=== PATIENT | female | born 1975 | race Caucasian/White ===

== ENCOUNTER 2017-06-09 17:17 | Emergency (ER) | payer OTHER ==
[2017-06-09 17:23] VITALS: BP 174/98; BMI 22.1
--- NOTE | 2017-06-09 19:01 | DR.GENAD ---
HPI - PCP Primary Care Physician: YOANNA - HPI Comment HPI Comment: PATIENT HAVE ABSCESS RT AXILLA AND IS ON MEDICATION CURRENTLY. MUSCLES AROUND ANSCESS HURTS. SHE ALSO FELL ON HER RIGHT SIDE FEW DAYS AFO. NO IMMEDIATE PAIN. RUQ PAIN STARTED AND PROGRESSIVELY GOTTEN WORSE. SOME NAUSEA PRESENT BUT NO VOMITING. - Complaint/Symptoms Chief Complaint Doctors Comments: RUQ ABDOMINAL PAIN, RT AXILLAR ABSCESS, TRAUMA RT SIDE FEW DAYS, WORSE TODAY. Chief Complaint:: RIGHT UPPER QUADRANT PAIN - Nurses notes reviewed Nurses Notes Review: Yes - Source History Provided: Patient - Mode of Arrival Mode of Arrival: Ambulatory - Timing Onset of Chief Complaint: 06/09/17 Came on: Gradually - Duration Duration: Constant Duration: Days - Severity Severity: Moderate PMH - PMH Past Medical History: Yes Past Medical History: Hypertension Past Surgical History: Yes Surgical History: - Family History History of Family Medical Conditions: No Family Medical History: Hypertension - Social History Does patient currently use any type of tobacco product: Yes Have you used tobacco products in the last 12 months: Yes Type of Tobacco Use: Cigarettes Does any household member use tobacco: Yes Alcohol Use: None Do you use any recreational Drugs:: No Lives With: Family Lives Where: Home - infectious screening In the last 2 months have you had wt loss of >10#?: NO Have you had fever, night sweats or hemotysis?: No Have you traveled outside the country in the last 6 months?: No Isolation: Standard ROS - Review of Systems Constitutional: No Symptoms Reported. negative: Chills, Fever, Weakness, Fatigue Eyes: No Symptoms Reported. negative: Eye Pain, Discharge ENTM: No Symptoms Reported. negative: Ear Pain, Nose Discharge, Nose Congestion , Throat Pain Respiratoy: No Symptoms Reported. negative: Productive Cough, Non-Productive Cough, Short of Breath, Wheezing, Hemoptysis Cardiovascular: Chest Pain (RT LOWER CHEST.) Gastrointestinal/Abdominal: Abdominal Pain, Nausea Genitourinary: No Symptoms Reported. negative: Dysuria, Frequency, Hematuria Neurological: Headache Musculoskeletal: Chest wall (RT LOWER CHEST.) Integumentary: No Symptoms Reported Hematologic/Lymphatic: No Symptoms Reported Endocrine: No Symptoms Reported All Other Systems: Reviewed and Negative PE - Vital Signs Vitals: Temperature 98.5 F Pulse Rate 68 Respiratory Rate 20 Blood Pressure 174/98 O2 Sat by Pulse Oximetry 98 - General Limitations: No Limitations General Appearance: Alert - Head Head Exam: Normal Inspection - Eyes Eye exam: Normal Appearance - ENT ENT Exam: Normal External Ear Exam External Ear Exam: Normal External Inspection TM/Canal Exam: Bilateral Normal Nose Exam: Normal Nose Exam Mouth Exam: Normal Inspection Throat Exam: Normal Inspection - Neck Neck Exam: Normal Inspection, Trachea Midline - Chest Chest Inspection: Symmetric Chest Wall Rise - Respiratory Respiratory Exam: Normal Lung Sounds Bilat Respiratory Exam: Bilateral Clear to Auscultation - Cardiovascular Cardiovascular Exam: Regular Rate, Normal Rhythm, Normal Heart Sounds - Abdominal Exam Abdominal Exam: Normal Bowel Sounds, Soft, Tenderness, Other (ABSCEE, RT AXILLA. ) Abdominal Tenderness: RUQ, Epigastrium, Moderate - Extremities Extremities Exam: Normal Inspection - Back Back Exam: Normal Inspection - Neurologic Neurological Exam: Alert, Oriented X3 - Psychiatric Psychiatric Exam: Normal Affect, Normal Mood - Skin Skin Exam: Normal Color MDM - Differential Diagnosis Differential Diagnosis: ABDOMINAL PAIN, RT AXILLA ABSCESS Course - Treatment Treatment: SEE ORDERS. - Education/Counseling Education/Counseling: Patient, Education Educated On: Diagnosis, Needs for Follow Up ROR - Labs Reviewed Laboratory Results Reviewed?: Yes Result Diagrams: 06/09/17 19:34 06/09/17 19:34 Laboratory: WBC 9.8 X10^3/uL (3.6-10.0) 06/09/17 19:34 RBC 4.26 X10^6/uL (3.5-5.4) 06/09/17 19:34 Hgb 11.5 g/dL (12.0-16.0) L 06/09/17 19:34 Hct 35.1 % (36.0-47.0) L 06/09/17 19:34 MCV 82.5 fL (80.0-100.0) 06/09/17 19:34 MCH 27.0 pg (27.0-34.0) 06/09/17 19:34 MCHC 32.8 g/dL (33.0-35.0) L 06/09/17 19:34 RDW 16.4 % (11.6-16.5) 06/09/17 19:34 Plt Count 316 X10^3/uL (150.0-450.0) 06/09/17 19:34 MPV 8.6 fL (7.4-11.0) 06/09/17 19:34 Neut % 59.6 % (42.0-75.0) 06/09/17 19:34 Lymph % 25.7 % (21.0-51.0) 06/09/17 19:34 Cass % 8.2 % (0.0-13.0) 06/09/17 19:34 Eos % 5.6 % (0.9-2.9) H 06/09/17 19:34 Baso % 0.9 % (0.2-1.0) 06/09/17 19:34 Neut # 5.8 x10^3/uL (2.2-4.8) H 06/09/17 19:34 Lymph # 2.5 X10^3/uL (1.3-2.9) 06/09/17 19:34 Cass # 0.8 x10^3/uL (0.3-0.8) 06/09/17 19:34 Eos # 0.6 x10^3/uL (0.0-0.2) H 06/09/17 19:34 Baso # 0.1 X10^3/uL (0.0-0.1) 06/09/17 19:34 Absolute Nucleated RBC 0.0 /100WBC 06/09/17 19:34 Sodium 138 mmol/L (136-145) 06/09/17 19:34 Corrected Sodium TNP 06/09/17 19:34 Potassium 4.0 mmol/L (3.5-5.1) 06/09/17 19:34 Chloride 103 mmol/L (98-107) 06/09/17 19:34 Carbon Dioxide 28.5 mmol/L (21-32) 06/09/17 19:34 BUN 16 mg/dL (7-18) 06/09/17 19:34 Creatinine 0.64 mg/dL (0.55-1.02) 06/09/17 19:34 Est GFR (MDRD) Af Amer > 60 (>60) 06/09/17 19:34 Est GFR (MDRD) Non-Af > 60 (>60) 06/09/17 19:34 Glucose 74 mg/dL (65-99) 06/09/17 19:34 Calcium 9.5 mg/dL (8.5-10.1) 06/09/17 19:34 Corrected Calcium TNP 06/09/17 19:34 Total Bilirubin 0.20 mg/dL (0.2-1.0) 06/09/17 19:34 AST 18 Units/L (15-37) 06/09/17 19:34 ALT 21 Units/L (12-78) 06/09/17 19:34 Alkaline Phosphatase 72 Units/L (46-116) 06/09/17 19:34 Total Protein 7.8 g/dL (6.4-8.2) 06/09/17 19:34 Albumin 3.6 g/dL (3.4-5.0) 06/09/17 19:34 Globulin 4.2 g/dL (2.5-4.5) 06/09/17 19:34 Albumin/Globulin Ratio 0.9 Ratio (1.1-2.1) L 06/09/17 19:34 Amylase 60 Units/L (25-115) 06/09/17 19:34 Lipase 157 Units/L (73-393) 06/09/17 19:34 Specimen Type Clean catch urine 06/09/17 19:29 Urine Color Yellow (YELLOW) 06/09/17 19:29 Urine Appearance Hazy (CLEAR) 06/09/17 19:29 Urine pH 6.0 (5.0 - 8.0) 06/09/17 19:29 Ur Specific [place] 1.020 (1.000-1.030) 06/09/17 19:29 Urine Protein Negative (NEGATIVE) 06/09/17 19:29 Urine Glucose (UA) Negative (NEGATIVE) 06/09/17 19:29 Urine Ketones Negative (NEGATIVE) 06/09/17 19:29 Urine Occult Blood 1+ (NEGATIVE) 06/09/17 19:29 Urine Nitrite Negative (NEGATIVE) 06/09/17 19:29 Urine Bilirubin Negative (NEGATIVE) 06/09/17 19:29 Urine Urobilinogen Normal (NORMAL) 06/09/17 19:29 Ur Leukocyte Esterase Negative (NEGATIVE) 06/09/17 19:29 Urine RBC 0-2 /HPF (NEGATIVE) 06/09/17 19:29 Urine WBC 0-2 /HPF (NEGATIVE) 06/09/17 19:29 Ur Squamous Epith Cells Few /HPF (NEGATIVE) 06/09/17 19:29 Urine Bacteria Trace /HPF (NEGATIVE) 06/09/17 19:29 Ur Culture Indicated? No/not indicated 06/09/17 19:29 - Other Results Comments: REPORT DISCUSS WITH PATIENT. - Diagnosis Discharge Problem: Abscess of right axilla Abdominal pain Qualifiers: Abdominal location: right upper quadrant Qualified Code(s): R10.11 - Right upper quadrant pain Cellulitis Qualifiers: Site of cellulitis: extremity Site of cellulitis of extremity: axilla Laterality: right Qualified Code(s): L03.111 - Cellulitis of right axilla - Discharge Plan Disposition: 01 HOME, SELF-CARE Condition: Stable - Follow ups/Referrals Follow ups/Referrals: LÁZARO LENZ [Primary Care Provider] - 1 day - Instructions Instructions: Abdominal Pain, Adult, [id number] Additional Instructions: RETURN TO ED IF WORSE.
[2017-06-09 19:42] LABS: BILIRUBIN,URINE NEGATIVE (NEGATIVE); BLOOD/HEMOGLOBIN,URINE 1+ (NEGATIVE); GLUCOSE, URINE NEGATIVE (NEGATIVE); KETONES,URINE NEGATIVE (NEGATIVE); LEUKOCYTE ESTERASE ,URINE NEGATIVE (NEGATIVE); NITRITES,URINE NEGATIVE (NEGATIVE); PROTEIN,URINE NEGATIVE (NEGATIVE); UROBILINOGEN,URINE NORMAL (NORMAL)
[2017-06-09 19:43] LABS: BASOPHILS # (AUTO) 0.1 X10^3/uL (0.0-0.1); BASOPHILS % (AUTO) 0.9 % (0.2-1.0); EOSINOPHILS # (AUTO) 0.6 x10^3/uL (0.0-0.2); EOSINOPHILS % (AUTO) 5.6 % (0.9-2.9); HEMATOCRIT 35.1 % (36.0-47.0); HEMOGLOBIN 11.5 g/dL (12.0-16.0); LYMPHOCYTES # (AUTO) 2.5 X10^3/uL (1.3-2.9); LYMPHOCYTES % (AUTO) 25.7 % (21.0-51.0); MEAN CORPUSCULAR HGB CONC 32.8 g/dL (33.0-35.0); MEAN CORPUSCULAR VOLUME 82.5 fL (80.0-100.0); MEAN PLATELET VOLUME 8.6 fL (7.4-11.0); MONOCYTES # (AUTO) 0.8 x10^3/uL (0.3-0.8); MONOCYTES % (AUTO) 8.2 % (0.0-13.0); NEUTROPHILS # (AUTO) 5.8 x10^3/uL (2.2-4.8); NEUTROPHILS % (AUTO) 59.6 % (42.0-75.0); PLATELET COUNT 316 X10^3/uL (150.0-450.0); RED BLOOD COUNT 4.26 X10^6/uL (3.5-5.4); RED CELL DISTRIBUTION WIDTH 16.4 % (11.6-16.5); WHITE BLOOD COUNT 9.8 X10^3/uL (3.6-10.0)
[2017-06-09 19:49] LABS: APPEARANCE,URINE HAZY (CLEAR); BACTERIA,URINE TRACE /HPF (NEGATIVE); COLOR,URINE YELLOW (YELLOW); RBC,URINE 0-2 /HPF (NEGATIVE); SQUAMOUS EPITHELIAL CELL,UR FEW /HPF (NEGATIVE)
[2017-06-09 19:55] LABS: ALANINE AMINOTRANSFERASE 21 Units/L (12-78); ALBUMIN 3.6 g/dL (3.4-5.0); ALKALINE PHOSPHATASE 72 Units/L (46-116); AMYLASE 60 Units/L (25-115); ASPARTATE AMINO TRANSFERASE 18 Units/L (15-37); BLOOD UREA NITROGEN 16 mg/dL (7-18); CALCIUM 9.5 mg/dL (8.5-10.1); CARBON DIOXIDE 28.5 mmol/L (21-32); CHLORIDE 103 mmol/L (98-107); CREATININE 0.64 mg/dL (0.55-1.02); LIPASE 157 Units/L (73-393); SODIUM 138 mmol/L (136-145); TOTAL PROTEIN 7.8 g/dL (6.4-8.2); eGFR BLACK RACES > 60 (>60); eGFR NON BLACK RACES > 60 (>60)
--- NOTE | 2017-06-09 21:41 | CT ---
CT ABDOMEN AND PELVIS WITHOUT CONTRAST CLINICAL HISTORY: 41-year-old female with pelvic pain. COMPARISON: None. TECHNIQUE: Multiple contiguous computed tomographic axial images of the abdomen and pelvis were obtai sheri without the use of oral or intravenous contrast. Images were reformatted in the coronal and sagit ursula planes. FINDINGS: The lung bases demonstrate no evidence of focal air-space opacification, pleural effusion, pneumothor ax, or suspicious pulmonary nodules. The imaged inferior mediastinum and heart are normal in appeara nce without evidence of pericardial effusion. The liver, gallbladder, pancreas, and spleen are within normal limits for noncontrast imaging. The adrenal glands are unremarkable for study without contrast. Bilateral punctate nonobstructing sarah al stones. No perinephric fluid collection. There is no evidence of hydroureteronephrosis and the ure ters run in an unobstructed course to a well distended urinary bladder. Uterus is mildly prominent, chronic and stable. The ovaries, vagina and perineum are within normal l imits. Multiple pelvic phleboliths. The appendix is not definitively visualized, however, there are no inflammatory changes in the right lower quadrant to suggest appendicitis. The bowel is without obstruction or inflammation and there i s no free fluid or free air within the peritoneal cavity. There are no pathologically enlarged lymph nodes in the abdomen or pelvis. The arteriovascular structures are within normal limits for a study without contrast. Soft tissues are normal. The osseous structures are intact without fracture or malalignment. IMPRESSION: One. No acute intra-abdominal or intrapelvic process. 2. Chronic prominence of the uterus, recommend evaluation by [facility] on a nonemergent outpatient basis. Reported By:
== END 2017-06-09 20:50 | disposition home or self-care (01) ==
LOC: ER 17:31
DX: L02.411 Cutaneous abscess of right axilla (principal); R10.11 Right upper quadrant pain; L03.111 Cellulitis of right axilla
CPT/HCPCS: 36415; 74176; 80053; 81001; 82150; 83690; 85025; 99282; 99283

== ENCOUNTER 2023-05-02 13:17 | Inpatient (IN) ==
--- NOTE | 2023-05-02 15:16 | DR.GENAD ---
HPI Time Seen Time Seen by Provider: 05/02/23 15:14 PCP Primary Care Physician: JUNAID Gordon Complaint/Symptoms Chief Complaint:: Pt states that she had outpatient bloodwork done on 04/30/23 that showed a hgb 5.3 hct 21.5. Pt does state taht she has very heavy menstrual bleeding and last month she bled for the entire month. Her period has started back yesterday and she has been passing large clots. Pt has c/o exertional shortness of breath and generalized fatigue. COVID-19 Coronavirus risk:travel/contact w/high risk person: No Has patient experienced Coronavirus symptoms: No Source History Provided: Patient Mode of Arrival Mode of Arrival: Ambulatory Timing Onset of Chief Complaint: 05/02/23 PMH PMH Past Medical History: Yes Past Medical History: GERD Past Medical History Comment: heart murmur Past Surgical History: Yes Surgical History: Past Surgical History Comment: sinus surgery Family History History of Family Medical Conditions: Yes Family Medical History: Diabetes Mellitus, Cancer, [place], Coronary Artery Disease and Hypertension Family Medical History Comment: AAA, Anemia Social History Does patient currently use any type of tobacco product: Yes Have you used tobacco products in the last 12 months: Yes Type of Tobacco Use: Cigarettes Does any household member use tobacco: No Alcohol Use: None Do you use any recreational Drugs:: No Lives With: Family Lives Where: Home Travel Risk Coronavirus risk:travel/contact w/high risk person: No Has patient experienced Coronavirus symptoms: No Infectious screening In the last 2 months have you had wt loss of >10#?: NO Have you had fever, night sweats or hemotysis?: No Have you traveled outside the country in the last 6 months?: No Isolation: Standard PE Vital Signs Vitals: Vital Signs Temperature 97.8 F Pulse Rate 86 Respiratory Rate 20 Blood Pressure 115/58 O2 Sat by Pulse Oximetry 100 ROR Labs Reviewed 05/02/23 15:10 05/02/23 15:15 Laboratory: WBC 5.7 X10^3/uL (3.6-10.0) 05/02/23 15:10 RBC 2.80 X10^6/uL (3.5-5.4) L 05/02/23 15:10 Hgb 4.8 g/dL (12.0-16.0) L* 05/02/23 15:10 Hct 17.0 % (36.0-47.0) L* 05/02/23 15:10 MCV 60.7 fL (80.0-100.0) L 05/02/23 15:10 MCH 17.2 pg (27.0-34.0) L 05/02/23 15:10 MCHC 28.3 g/dL (33.0-35.0) L 05/02/23 15:10 RDW 20.9 % (11.6-16.5) H 05/02/23 15:10 Plt Count 256 X10^3/uL (150.0-450.0) 05/02/23 15:10 Plt Count Comment Adequate (ADEQUATE) 05/02/23 15:10 MPV 8.9 fL (7.4-11.0) 05/02/23 15:10 Neut % (Auto) 59.0 % (42.0-75.0) 05/02/23 15:10 Lymph % (Auto) 28.2 % (21.0-51.0) 05/02/23 15:10 [place] % (Auto) 7.0 % (0.0-13.0) 05/02/23 15:10 Eos % (Auto) 3.9 % (0.9-2.9) H 05/02/23 15:10 Baso % (Auto) 1.9 % (0.2-1.0) H 05/02/23 15:10 Neut # (Auto) 3.3 x10^3/uL (2.2-4.8) 05/02/23 15:10 Lymph # (Auto) 1.6 X10^3/uL (1.3-2.9) 05/02/23 15:10 [place] # (Auto) 0.4 x10^3/uL (0.3-0.8) 05/02/23 15:10 Eos # (Auto) 0.2 x10^3/uL (0.0-0.2) 05/02/23 15:10 Baso # (Auto) 0.1 X10^3/uL (0.0-0.1) 05/02/23 15:10 Absolute Nucleated RBC 0.1 /100WBC 05/02/23 15:10 Plt Morphology Comment Normal (NORMAL) 05/02/23 15:10 RBC Morphology Abnormal (NORMAL) A 05/02/23 15:10 Dimorphic RBCs Present 05/02/23 15:10 Hypochromasia 3+ A 05/02/23 15:10 Anisocytosis 1+ A 05/02/23 15:10 Microcytosis 2+ A 05/02/23 15:10 Stomatocytes Present 05/02/23 15:10 Sodium 134 mmol/L (136-145) L 05/02/23 15:15 Corrected Sodium TNP 05/02/23 15:15 Potassium 4.0 mmol/L (3.5-5.1) 05/02/23 15:15 Chloride 100 mmol/L (98-107) 05/02/23 15:15 Carbon Dioxide 25.6 mmol/L (21-32) 05/02/23 15:15 BUN 14 mg/dL (7-18) 05/02/23 15:15 Creatinine 0.67 mg/dL (0.55-1.02) 05/02/23 15:15 Est GFR (MDRD) Af Amer > 60 (>60) 05/02/23 15:15 Est GFR (MDRD) Non-Af > 60 (>60) 05/02/23 15:15 Glucose 88 mg/dL (65-99) 05/02/23 15:15 Calcium 8.8 mg/dL (8.5-10.1) 05/02/23 15:15 Corrected Calcium TNP 05/02/23 15:15 Iron 11 ug/dL (50-175) L 05/02/23 15:15 TIBC 601 ug/dL (250-450) H 05/02/23 15:15 Ferritin 4 ng/mL (8-252) L 05/02/23 15:15 Total Bilirubin 0.40 mg/dL (0.2-1.0) 05/02/23 15:15 AST 24 Units/L (15-37) 05/02/23 15:15 ALT 12 Units/L (12-78) 05/02/23 15:15 Alkaline Phosphatase 59 Units/L (46-116) 05/02/23 15:15 Total Protein 7.4 g/dL (6.4-8.2) 05/02/23 15:15 Albumin 3.9 g/dL (3.4-5.0) 05/02/23 15:15 Globulin 3.5 g/dL (2.5-4.5) 05/02/23 15:15 Albumin/Globulin Ratio 1.1 Ratio (1.1-2.1) 05/02/23 15:15 Vitamin B12 379 pg/mL (193-986) 05/02/23 15:15 Folate > 20.0 ng/mL (>8.6) 05/02/23 15:15 Blood Type O POSITIVE 05/02/23 15:15 Antibody Screen Negative 05/02/23 15:15 Opioid Opioid Risk Tool Age (Eduardo box if 16-45): No History of Preadolescent Sexual Abuse: No Total: 0 Total Score Risk Category: Low Risk Copyright: José Miguel PINEDO predicting aberrant behaviors Discharge Plan Discharge Plan Patient Disposition: 01 HOME, SELF-CARE Condition: Stable Prescriptions: No Action No Known Home Medications cephalexin 500 MG capsule 500 mg PO TID Qty: 30 0RF indomethacin 25 MG capsule 25 mg PO TID Qty: 21 0RF Health Concerns: Post Hospitalization: new medications and changes needed to prevent readmission or further decline. Pt educated and given instructions on all concerns. Plan of Treatment: Continue with present treatment and follow up plan. Pt is to keep follow up appointment as instructed and take medications as ordered. Orders to Discharge Patient Discharge Orders: Transfer (Routine); Ordered 05/02/23 Ordered By: HIGINIO MARADIAGA Follow ups/Referrals Follow ups/Referrals: JESSEE LARKIN [Primary Care Provider] - 3 days Instructions Stand Alone Forms: Post Hospital Follow Up Care
[2023-05-02 15:38] LABS: BASOPHILS # (AUTO) 0.1 X10^3/uL (0.0-0.1); EOSINOPHILS # (AUTO) 0.2 x10^3/uL (0.0-0.2); MEAN PLATELET VOLUME 8.9 fL (7.4-11.0); MONOCYTES # (AUTO) 0.4 x10^3/uL (0.3-0.8); RED CELL DISTRIBUTION WIDTH 20.9 % (11.6-16.5)
[2023-05-02 15:42] LABS: BASOPHILS % (AUTO) 1.9 % (0.2-1.0); EOSINOPHILS % (AUTO) 3.9 % (0.9-2.9); LYMPHOCYTES # (AUTO) 1.6 X10^3/uL (1.3-2.9); LYMPHOCYTES % (AUTO) 28.2 % (21.0-51.0); MEAN CORPUSCULAR HEMOGLOBIN 17.2 pg (27.0-34.0); MEAN CORPUSCULAR HGB CONC 28.3 g/dL (33.0-35.0); MEAN CORPUSCULAR VOLUME 60.7 fL (80.0-100.0); NEUTROPHILS # (AUTO) 3.3 x10^3/uL (2.2-4.8); PLATELET COUNT 256 X10^3/uL (150.0-450.0); WHITE BLOOD COUNT 5.7 X10^3/uL (3.6-10.0)
[2023-05-02 15:47] LABS: HEMOGLOBIN 4.8 g/dL (12.0-16.0)
[2023-05-02 15:51] LABS: ALANINE AMINOTRANSFERASE 12 Units/L (12-78); ALBUMIN 3.9 g/dL (3.4-5.0); ALKALINE PHOSPHATASE 59 Units/L (46-116); ASPARTATE AMINO TRANSFERASE 24 Units/L (15-37); BLOOD UREA NITROGEN 14 mg/dL (7-18); CALCIUM 8.8 mg/dL (8.5-10.1); CARBON DIOXIDE 25.6 mmol/L (21-32); CHLORIDE 100 mmol/L (98-107); CREATININE 0.67 mg/dL (0.55-1.02); GLUCOSE 88 mg/dL (65-99); SODIUM 134 mmol/L (136-145); TOTAL PROTEIN 7.4 g/dL (6.4-8.2); eGFR NON BLACK RACES > 60 (>60)
[2023-05-02 16:05] LABS: PLATELET MORPHOLOGY COMMENT NORMAL (NORMAL)
[2023-05-02 16:06] LABS: ANISOCYTOSIS 1+; MICROCYTOSIS 2+
[2023-05-02 16:09] LABS: HYPOCHROMASIA 3+; STOMATOCYTES PRESENT
[2023-05-02 16:16] LABS: TOTAL IRON BINDING CAPACITY 601 ug/dL (250-450)
[2023-05-02 16:30] LABS: IRON 11 ug/dL (50-175)
[2023-05-02] MEDS ORDERED: NS 250 ML IV 250 ML IV ONE (20:42)
[2023-05-02] MEDS ORDERED: CONSULT PHARMACY - POTASSIUM & MAGNESIUM XX SCH (20:54)
[2023-05-02] MEDS ORDERED: TYLENOL 325 MG TAB PO PRN (20:55)
[2023-05-02] MEDS ORDERED: PULMICORT NEB TX 0.5 MG NEB ONE (21:27)
[2023-05-02] MEDS: PULMICORT NEB TX 0.5 MG NEB SCH (21:35)
[2023-05-02 23:16] VITALS: BMI 24.2
[2023-05-03 05:22] LABS: BASOPHILS # (AUTO) 0.1 X10^3/uL (0.0-0.1); BASOPHILS % (AUTO) 1.6 % (0.2-1.0); EOSINOPHILS # (AUTO) 0.2 x10^3/uL (0.0-0.2); HEMATOCRIT 23.5 % (36.0-47.0); LYMPHOCYTES # (AUTO) 1.6 X10^3/uL (1.3-2.9); LYMPHOCYTES % (AUTO) 31.6 % (21.0-51.0); MEAN CORPUSCULAR HEMOGLOBIN 21.1 pg (27.0-34.0); MEAN CORPUSCULAR HGB CONC 31.6 g/dL (33.0-35.0); MEAN CORPUSCULAR VOLUME 66.7 fL (80.0-100.0); MEAN PLATELET VOLUME 8.8 fL (7.4-11.0); MONOCYTES # (AUTO) 0.5 x10^3/uL (0.3-0.8); MONOCYTES % (AUTO) 9.4 % (0.0-13.0); NEUTROPHILS # (AUTO) 2.8 x10^3/uL (2.2-4.8); NEUTROPHILS % (AUTO) 53.4 % (42.0-75.0); PLATELET COUNT 207 X10^3/uL (150.0-450.0); RED BLOOD COUNT 3.52 X10^6/uL (3.5-5.4); RED CELL DISTRIBUTION WIDTH 24.6 % (11.6-16.5); WHITE BLOOD COUNT 5.2 X10^3/uL (3.6-10.0)
[2023-05-03 05:31] LABS: ALANINE AMINOTRANSFERASE 9 Units/L (12-78); ALBUMIN 3.5 g/dL (3.4-5.0); ALKALINE PHOSPHATASE 71 Units/L (46-116); ASPARTATE AMINO TRANSFERASE 17 Units/L (15-37); BLOOD UREA NITROGEN 13 mg/dL (7-18); CALCIUM 8.7 mg/dL (8.5-10.1); CARBON DIOXIDE 27.2 mmol/L (21-32); CHLORIDE 104 mmol/L (98-107); CREATININE 0.66 mg/dL (0.55-1.02); GLUCOSE 87 mg/dL (65-99); POTASSIUM 3.9 mmol/L (3.5-5.1); SODIUM 140 mmol/L (136-145); TOTAL PROTEIN 6.8 g/dL (6.4-8.2); eGFR NON BLACK RACES > 60 (>60)
[2023-05-03 05:55] LABS: HEMOGLOBIN 7.4 g/dL (12.0-16.0)
[2023-05-03 05:56] LABS: ANISOCYTOSIS 3+; HYPOCHROMASIA 2+; MICROCYTOSIS 1+; OVALOCYTES PRESENT; PLATELET MORPHOLOGY COMMENT NORMAL (NORMAL); STOMATOCYTES PRESENT
[2023-05-03] MEDS: PULMICORT NEB TX 0.5 MG NEB SCH ×2 (08:20→20:02)
[2023-05-03] MEDS ORDERED: NS 500 ML IV 500 ML IV ONE (10:51)
[2023-05-03] MEDS ORDERED: INJECTAFER 750 MG in NS 250 ML IV 250 ML IV NR (11:00)
[2023-05-03] MEDS: HEMOCYTE-PLUS PO SCH (11:25)
[2023-05-03] MEDS ORDERED: NS 250 ML IV 250 ML IV ONE (13:30)
[2023-05-03] MEDS: NICOTINE PATCH TD SCH (13:51)
[2023-05-03] MEDS: KLONOPIN TAB 0.5 MG PO PRN (13:52)
[2023-05-03] MEDS: PROTONIX TAB 40 MG PO SCH (13:52)
--- NOTE | 2023-05-03 13:57 | DR.H&P ---
H&P - History & Physical for Day of: H&P Date: 05/02/23 - Chief Complaint Chief Complaint: SOB, HEAVY VAGINAL BLEEDING - History of Present Illness History of Present Illness: Pt states that she had outpatient bloodwork done on 04/30/23 that showed a hgb 5.3 hct 21.5. Pt does state taht she has very heavy menstrual bleeding and last month she bled for the entire month. Her period has started back yesterday and she has been passing large clots. Pt has c/o exertional shortness of breath and generalized fatigue. - Past Medical History Past Medical History: GERD - Past Surgical History Surgical History: - Family History Family Medical History: Cancer, Coronary Artery Disease, Hypertension - Social History Does patient currently use any type of tobacco product: Yes Have you used tobacco products in the last 12 months: Yes Type of Tobacco Use: Cigarettes How many years tobacco product used: 30 Does any household member use tobacco: Yes Alcohol Use: None Drug Use: None - Review of Systems Constitutional: Weakness Eyes: No Symptoms Reported ENT: No Symptoms Reported Respiratory: Shortness of Breath, SOB with Excertion Cardiovascular: Palpitations Genitourinary: No Symptoms Reported Musculoskeletal: No Symptoms Reported Skin: No Symptoms Reported Neurological: Other (DIZZY SPELLS) - Physical Exam Vital Signs: Vital Signs Temperature 98.5 F Pulse Rate [Apical] 78 Pulse Rate [Apical] 66 Pulse Rate 71 Pulse Rate 69 Pulse Rate 79 Respiratory Rate 30 Respiratory Rate 23 Respiratory Rate 28 Respiratory Rate 27 Blood Pressure [Right Arm] 166/80 Blood Pressure [Right Arm] 167/92 Blood Pressure 167/83 Blood Pressure 157/92 O2 Sat by Pulse Oximetry 99 O2 Sat by Pulse Oximetry 99 O2 Sat by Pulse Oximetry 100 O2 Sat by Pulse Oximetry 100 O2 Sat by Pulse Oximetry 100 Oriented: Normal Eyes: Normal Ear: Normal Nose: Normal Throat: Normal Respiratory: RLL Diminished, LLL Diminished Cardiovascular: Normal, Murmur : Normal Auscultation: Bowel Sounds: Normal Palpation: Other Tenderness: RUQ, Mild Skin: Decreased Turgur Musculoskeletal: Normal Psychiatric: Anxiety Affect: Anxious Speech Pattern: Clear, Appropriate - Assessment/Plan (1) Symptomatic anemia Status: Acute Plan: ADMIT, TYPE/SCREEN, TRANFUSE 2 UNIT PRBC PER PROTCOL. ANEMIA PANEL ON ADMISSION. CARDIAC MONITORING, CONFIRM HOME MEDICATION. PPI THERAPY, OCCULT STOOL (2) SOB (shortness of breath) Status: Acute (3) Vaginal bleeding Status: Acute - Allergies Allergies/Adverse Reactions: Allergies Allergy/AdvReac Type Severity Reaction Status Date / Time No Known Drug Allergies Allergy Verified 06/09/17 19:03 - Medications Home Medications: Home Medications Medication Instructions Recorded Confirmed No Known Home Medications 12/29/13 12/29/13 Previous Rx's Medication Instructions Recorded cephalexin 500 mg capsule 500 mg PO TID #30 caps 10/05/15 indomethacin 25 mg capsule 25 mg PO TID #21 caps 10/05/15
--- NOTE | 2023-05-03 14:00 | PCM.PROG ---
Progress Note - Progress Note for Day of Date of Exam: 05/03/23 - Subjective Subjective: PT IS 47 WF, ER ADMISSION WITH SYMPTOMATIC ANEMIA. HER HGB WAS 4.8 ON ADMISSION, 7.4 AFTER 2 UNITS PRBC. IRON INFUSION ORDERED FOR THIS MORNING AND WE WILL ADD PO HEMACYTE PLUS DAILY. PT IS ON PROTONIC AND AN OCCULT STOOL HAS BEEN ORDERED. PT REPORTS HEAVY VAGINAL BLEEDING WITH CLOTS. AM VAGINAL US ORDERED AND PRODUCE PRODUCTION TEAM MEMBER REFERRAL ON OUTPT. PT CO RESTLESS LEGS AND COULD NOT SLEEP LAST NIGHT. WILL TRY CLONAZEPAM 0.5MG FOR RLS AND ANXIETY MANAGEMENT. - Past Medical Family Social History Past Med/Fam/Surg Hx: No changes since H&P Allergies: Allergies No Known Drug Allergies Allergy (Verified 06/09/17 19:03) - Review of Systems ROS: No change since H&P - Vital Signs and I&O's Vital Signs: Vital Signs Temperature 98.5 F Pulse Rate [Apical] 78 Pulse Rate [Apical] 66 Pulse Rate 71 Pulse Rate 69 Pulse Rate 79 Respiratory Rate 30 Respiratory Rate 23 Respiratory Rate 28 Respiratory Rate 27 Blood Pressure [Right Arm] 166/80 Blood Pressure [Right Arm] 167/92 Blood Pressure 167/83 Blood Pressure 157/92 O2 Sat by Pulse Oximetry 99 O2 Sat by Pulse Oximetry 99 O2 Sat by Pulse Oximetry 100 O2 Sat by Pulse Oximetry 100 O2 Sat by Pulse Oximetry 100 Intake and Output: Intake & Output 05/01/23 05/02/23 05/03/23 05/04/23 11:59 11:59 11:59 11:59 Intake Total 1900 / 1900 0 / 0 Output Total 5 / 5 Balance 1895 / 1895 0 / 0 - Physical Exam Oriented: Normal Eyes: Normal Ear: Normal Nose: Normal Throat: Normal Cardiovascular: Normal, Murmur : Normal Auscultation: Bowel Sounds: Normal Tenderness: RUQ, Mild Skin: Decreased Turgur Musculoskeletal: Normal Psychiatric: Anxiety Affect: Anxious Speech Pattern: Clear, Appropriate - Laboratory and Diagnostics Result Diagrams: 05/03/23 05:03 05/03/23 05:03 Labs: Laboratory WBC 5.2 X10^3/uL (3.6-10.0) 05/03/23 05:03 RBC 3.52 X10^6/uL (3.5-5.4) 05/03/23 05:03 Hgb 7.4 g/dL (12.0-16.0) L D 05/03/23 05:03 Hct 23.5 % (36.0-47.0) L 05/03/23 05:03 MCV 66.7 fL (80.0-100.0) L 05/03/23 05:03 MCH 21.1 pg (27.0-34.0) L 05/03/23 05:03 MCHC 31.6 g/dL (33.0-35.0) L 05/03/23 05:03 RDW 24.6 % (11.6-16.5) H 05/03/23 05:03 Plt Count 207 X10^3/uL (150.0-450.0) 05/03/23 05:03 Plt Count Comment Adequate (ADEQUATE) 05/03/23 05:03 MPV 8.8 fL (7.4-11.0) 05/03/23 05:03 Neut % (Auto) 53.4 % (42.0-75.0) 05/03/23 05:03 Lymph % (Auto) 31.6 % (21.0-51.0) 05/03/23 05:03 [place] % (Auto) 9.4 % (0.0-13.0) 05/03/23 05:03 Eos % (Auto) 4.0 % (0.9-2.9) H 05/03/23 05:03 Baso % (Auto) 1.6 % (0.2-1.0) H 05/03/23 05:03 Neut # (Auto) 2.8 x10^3/uL (2.2-4.8) 05/03/23 05:03 Lymph # (Auto) 1.6 X10^3/uL (1.3-2.9) 05/03/23 05:03 [place] # (Auto) 0.5 x10^3/uL (0.3-0.8) 05/03/23 05:03 Eos # (Auto) 0.2 x10^3/uL (0.0-0.2) 05/03/23 05:03 Baso # (Auto) 0.1 X10^3/uL (0.0-0.1) 05/03/23 05:03 Absolute Nucleated RBC 0.1 /100WBC 05/03/23 05:03 Plt Morphology Comment Normal (NORMAL) 05/03/23 05:03 RBC Morphology Abnormal (NORMAL) A 05/03/23 05:03 Dimorphic RBCs Present 05/02/23 15:10 Hypochromasia 2+ A 05/03/23 05:03 Anisocytosis 3+ A 05/03/23 05:03 Microcytosis 1+ A 05/03/23 05:03 Ovalocytes Present 05/03/23 05:03 Stomatocytes Present 05/03/23 05:03 Sodium 140 mmol/L (136-145) 05/03/23 05:03 Corrected Sodium TNP 05/03/23 05:03 Potassium 3.9 mmol/L (3.5-5.1) 05/03/23 05:03 Chloride 104 mmol/L (98-107) 05/03/23 05:03 Carbon Dioxide 27.2 mmol/L (21-32) 05/03/23 05:03 BUN 13 mg/dL (7-18) 05/03/23 05:03 Creatinine 0.66 mg/dL (0.55-1.02) 05/03/23 05:03 Est GFR (MDRD) Af Amer > 60 (>60) 05/03/23 05:03 Est GFR (MDRD) Non-Af > 60 (>60) 05/03/23 05:03 Glucose 87 mg/dL (65-99) 05/03/23 05:03 Calcium 8.7 mg/dL (8.5-10.1) 05/03/23 05:03 Corrected Calcium TNP 05/03/23 05:03 Iron 11 ug/dL (50-175) L 05/02/23 15:15 TIBC 601 ug/dL (250-450) H 05/02/23 15:15 Ferritin 4 ng/mL (8-252) L 05/02/23 15:15 Total Bilirubin 0.70 mg/dL (0.2-1.0) 05/03/23 05:03 AST 17 Units/L (15-37) 05/03/23 05:03 ALT 9 Units/L (12-78) L 05/03/23 05:03 Alkaline Phosphatase 71 Units/L (46-116) 05/03/23 05:03 Total Protein 6.8 g/dL (6.4-8.2) 05/03/23 05:03 Albumin 3.5 g/dL (3.4-5.0) 05/03/23 05:03 Globulin 3.3 g/dL (2.5-4.5) 05/03/23 05:03 Albumin/Globulin Ratio 1.1 Ratio (1.1-2.1) 05/03/23 05:03 Vitamin B12 379 pg/mL (193-986) 05/02/23 15:15 Folate > 20.0 ng/mL (>8.6) 05/02/23 15:15 Blood Type O POSITIVE 05/02/23 15:15 Antibody Screen Negative 05/02/23 15:15 Crossmatch See Detail 05/02/23 15:15 - Plan (1) Symptomatic anemia Status: Acute Plan: TYPE/SCREEN, TRANFUSE 2 UNIT PRBC PER PROTCOLON ADMISSION, PLAN TO TRANSF USE 3RD UNIT TODAY. ANEMIA PANEL ON ADMISSION. CARDIAC MONITORING, CONFIRM HOME MEDICATION. PPI THERAPY, OCCULT STOOL (2) SOB (shortness of breath) Status: Acute (3) Vaginal bleeding Status: Acute
[2023-05-03 17:46] LABS: HEMATOCRIT 25.7 % (36.0-47.0); HEMOGLOBIN 8.2 g/dL (12.0-16.0)
[2023-05-03] MEDS ORDERED: COLACE CAP 100 MG PO PRN (18:50)
[2023-05-04 00:16] VITALS: O2SAT 99
[2023-05-04] MEDS: KLONOPIN TAB 0.5 MG PO PRN (01:34)
[2023-05-04 04:08] VITALS: PULSE 65
[2023-05-04 05:16] LABS: BASOPHILS # (AUTO) 0.1 X10^3/uL (0.0-0.1); BASOPHILS % (AUTO) 1.1 % (0.2-1.0); EOSINOPHILS # (AUTO) 0.3 x10^3/uL (0.0-0.2); EOSINOPHILS % (AUTO) 3.6 % (0.9-2.9); HEMATOCRIT 27.2 % (36.0-47.0); HEMOGLOBIN 8.7 g/dL (12.0-16.0); LYMPHOCYTES # (AUTO) 1.5 X10^3/uL (1.3-2.9); LYMPHOCYTES % (AUTO) 15.3 % (21.0-51.0); MEAN CORPUSCULAR HEMOGLOBIN 22.6 pg (27.0-34.0); MEAN CORPUSCULAR HGB CONC 31.9 g/dL (33.0-35.0); MEAN CORPUSCULAR VOLUME 70.7 fL (80.0-100.0); MEAN PLATELET VOLUME 9.4 fL (7.4-11.0); MONOCYTES # (AUTO) 0.7 x10^3/uL (0.3-0.8); MONOCYTES % (AUTO) 7.7 % (0.0-13.0); NEUTROPHILS # (AUTO) 6.9 x10^3/uL (2.2-4.8); NEUTROPHILS % (AUTO) 72.3 % (42.0-75.0); PLATELET COUNT 201 X10^3/uL (150.0-450.0); RED BLOOD COUNT 3.84 X10^6/uL (3.5-5.4); RED CELL DISTRIBUTION WIDTH 26.4 % (11.6-16.5); WHITE BLOOD COUNT 9.5 X10^3/uL (3.6-10.0)
[2023-05-04 05:27] LABS: ALANINE AMINOTRANSFERASE 19 Units/L (12-78); ALBUMIN 3.4 g/dL (3.4-5.0); ALKALINE PHOSPHATASE 68 Units/L (46-116); ASPARTATE AMINO TRANSFERASE 16 Units/L (15-37); BLOOD UREA NITROGEN 10 mg/dL (7-18); CALCIUM 8.3 mg/dL (8.5-10.1); CHLORIDE 107 mmol/L (98-107); CREATININE 0.51 mg/dL (0.55-1.02); GLUCOSE 101 mg/dL (65-99); POTASSIUM 3.6 mmol/L (3.5-5.1); SODIUM 142 mmol/L (136-145); TOTAL PROTEIN 6.6 g/dL (6.4-8.2); eGFR NON BLACK RACES > 60 (>60)
[2023-05-04 05:35] LABS: ANISOCYTOSIS 3+; HYPOCHROMASIA 1+; PLATELET MORPHOLOGY COMMENT NORMAL (NORMAL)
[2023-05-04 05:36] LABS: MICROCYTOSIS 1+; OVALOCYTES PRESENT
[2023-05-04] MEDS ORDERED: CONSULT PHARMACY - POTASSIUM & MAGNESIUM XX SCH (07:00)
[2023-05-04] MEDS: PULMICORT NEB TX 0.5 MG NEB SCH (08:19)
[2023-05-04] MEDS ORDERED: K-DUR TAB 20 MEQ PO SCH (09:00)
[2023-05-04] MEDS: HEMOCYTE-PLUS PO SCH (09:12)
[2023-05-04] MEDS: NICOTINE PATCH TD SCH ×2 (09:13→09:44)
[2023-05-04] MEDS: PROTONIX TAB 40 MG PO SCH (09:13)
[2023-05-04 10:07] VITALS: BP 164/96; RESP 23; TEMP 98
[2023-05-04] MEDS ORDERED: MYLICON TAB 80 MG CHEW PO ONE (12:31)
--- NOTE | 2023-05-04 14:50 | US ---
HISTORYReason For StudySTUDYTRANSVAGINALCOMPARISONNone availableTECHNIQUEMultiple beltrán scale, duplex and color flow Doppler images of the pelvic organs was performed.FINDINGSThe uterus measures 8.9 x 4.9 x 5.6 centimeters, the endometrial thickness is 3 millimeters. The right ovary measures 2.6 x 1.8 x 1.5 centimeters with color Doppler flow and a dominant cyst measuring 1.2 x 1 x 0.9 centimeters. The left ovary measures 2.5 x 1.6 x 1.5 centimeters with color Doppler flow. There is no adnexal masses, no free fluid in the cul de sac.IMPRESSIONNo dominant adnexal massesDominant 1.2 centimeter right ovarian cyst.Electronically signed by: Kelle Elizalde (May 04, 2023 14:48:43)
== END 2023-05-04 16:45 | disposition home or self-care (01) | DRG 812 ==
LOC: ER 13:40 → ICU 18:47
PROVIDERS: ADMIT Internal Medicine; ATTEND Internal Medicine
DX: Z72.0 Tobacco use; F41.8 Other specified anxiety disorders; K21.9 Gastro-esophageal reflux disease without esophagitis; R42 Dizziness and giddiness; G25.81 Restless legs syndrome; N92.0 Excessive and frequent menstruation with regular cycle; R53.83 Other fatigue; R06.02 Shortness of breath; R53.1 Weakness; D50.8 Other iron deficiency anemias